=== PATIENT | male | born 1955 | race Caucasian/White ===

== ENCOUNTER 2022-07-24 05:58 | Day surgery (SDC) | payer OTHER ==
[~2022-07-24] VITALS: Ht 167.6 cm; Wt 101.7 kg
[2022-07-24 06:15] VITALS: BP 119/65
[2022-07-24] MEDS ORDERED: albumin 25% 100mL bottle x 1 IV PRN (06:25)
[2022-07-24] MEDS ORDERED: levothyroxine PO (06:28)
[2022-07-24] MEDS ORDERED: OMEP40CA21 PO (06:28)
[2022-07-24] MEDS ORDERED: ATOR20TA PO (06:28)
[2022-07-24] MEDS ORDERED: LACT10SO3 PO (06:28)
[2022-07-24] MEDS ORDERED: SENN-263 PO (06:28)
[2022-07-24] MEDS ORDERED: zinc PO (06:28)
[2022-07-24] MEDS ORDERED: CAMPHOR TOP (06:28)
[2022-07-24] MEDS ORDERED: FURO-150 PO (06:28)
[2022-07-24] MEDS ORDERED: metoprolol PO (06:28)
[2022-07-24] MEDS ORDERED: CYCL-394 PO (06:28)
[2022-07-24] MEDS ORDERED: UREA227C4 TOP (06:47)
[2022-07-24] MEDS ORDERED: ACET-1025 PO (06:47)
[2022-07-24] MEDS ORDERED: RIFA200T2 PO (06:47)
[2022-07-24] MEDS ORDERED: LIDOcaine 1% 30ml preserv. free vial SQ ONE (08:00)
[2022-07-24 08:25] VITALS: BP 126/70
[2022-07-24 08:40] VITALS: BP 128/71
[2022-07-24 08:55] VITALS: BP 114/66
[2022-07-24 09:10] VITALS: BP 112/51
[2022-07-24 09:25] VITALS: BP 111/56
== END 2022-07-24 09:55 | disposition home or self-care (01) ==
LOC: SSTAY O 05:58
PROVIDERS: ATTEND Radiology Vascular & Interventional Radiology
DX: R18.8 Other ascites (principal); R14.0 Abdominal distension (gaseous); B19.20 Unspecified viral hepatitis C without hepatic coma; K75.81 Nonalcoholic steatohepatitis (NASH); I10 Essential (primary) hypertension; K21.9 Gastro-esophageal reflux disease without esophagitis; E78.5 Hyperlipidemia, unspecified; E03.9 Hypothyroidism, unspecified; K74.60 Unspecified cirrhosis of liver; Q63.0 Accessory kidney; Z90.49 Acquired absence of other specified parts of digestive tract; Z98.890 Other specified postprocedural states; Z95.1 Presence of aortocoronary bypass graft; Z79.899 Other long term (current) drug therapy
CPT/HCPCS: 49083; J3490; P9047; A6258; A6449